=== PATIENT | male | born 1975 | race Two or more races ===

== ENCOUNTER 2023-12-17 08:51 | Emergency (ER) | payer OTHER ==
[~2023-12-17] VITALS: Ht 172.7 cm; Wt 90.9 kg
[2023-12-17 09:03] VITALS: BP 212/100; PULSE 102; RESP 20; TEMP 98.2; O2SAT 98
[2023-12-17] MEDS: FentaNYL CITRATE PF 100 MCG/2 ML VIAL IVP ONE (09:18)
[2023-12-17] MEDS: PERTUSS(ACELL),DIPH,TET/PF 0.5 ML SYRINGE [ADULT] IM. ONE (09:19)
[2023-12-17] MEDS: CeFAZolin 1 GM/DEXTROSE 50 ML IV ONE (09:20)
[2023-12-17] MEDS: LIDOCAINE 1% 10 ML VIAL SQ ONE (09:20)
[2023-12-17] MEDS ORDERED: IBUP-1492 PO (13:06)
[2023-12-17] MEDS ORDERED: PERCT PO (13:06)
[2023-12-17] MEDS ORDERED: CEPH-558 PO (13:06)
== END 2023-12-17 13:19 | disposition home or self-care (01) ==
LOC: EMS 08:51
DX: S62.631A Displaced fracture of distal phalanx of left index finger, initial encounter for closed fracture (principal); S61.311A Laceration without foreign body of left index finger with damage to nail, initial encounter; W27.0XXA Contact with workbench tool, initial encounter; Y93.89 Activity, other specified; Y92.89 Other specified places as the place of occurrence of the external cause; Y99.0 Civilian activity done for income or pay
CPT/HCPCS: 99284; 96365; 96375; 73130; 90715; 90471; J0690; J3010; J3490